=== PATIENT | female | born 1975 | race Caucasian/White ===

== ENCOUNTER 2017-01-24 09:42 | Emergency (ER) | payer MEDICAID | END 2017-01-24 10:38 | disposition home or self-care (01) | LOC: D.ER 09:42 | DX: M25.561 Pain in right knee (principal); J30.9 Allergic rhinitis, unspecified; J01.90 Acute sinusitis, unspecified ==

== ENCOUNTER 2017-11-06 13:59 | Emergency (ER) | payer MEDICAID | END 2017-11-06 16:20 | disposition home or self-care (01) | LOC: D.ER 13:59 | DX: M71.9 Bursopathy, unspecified (principal); F17.200 Nicotine dependence, unspecified, uncomplicated; I10 Essential (primary) hypertension ==